=== PATIENT | male | born 1990 | race Two or more races ===

== ENCOUNTER 2019-01-06 02:52 | Emergency (ER) | payer SELFPAY ==
[~2019-01-06] VITALS: Ht 182.9 cm; Wt 135.0 kg
[2019-01-06 03:05] VITALS: BP 127/79
== END 2019-01-06 06:54 | disposition left against medical advice (07) ==
LOC: ER 02:52
DX: M79.606 Pain in leg, unspecified (principal); Z53.21 Procedure and treatment not carried out due to patient leaving prior to being seen by health care provider